=== PATIENT | male | born 1980 | race American Indian/Alaskan Native ===

== ENCOUNTER 2025-04-26 15:23 | Outpatient (AMB) | payer OTHER, SELFPAY ==
--- NOTE | 2025-04-26 15:27 | A.OFFPC_ITS ---
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 Accompanied by: Self / Same As Patient Allergies No Known Allergies (No Known Allergies*) Allergy (Unverified 04/26/25 15:27) Medication List - Last Reconciled 04/26/25 by TOAN Brand No Known Home Meds Tobacco use date assessed: 04/26/25 Dental Screening Dental Screen Date: 04/26/25 Did you have a dental visit in the last 12 months?: Yes Did you have a dental problem in the last 6 months where you did not have access to dental care?: No Was dental information given to patient?: Patient has dentist HPI HPI Comments History of Present Illness Details 44 year old male without any significant medical history presenting to the [facility] today to establish care and for annual physical exam. He has not been seen by any PCP in his adult life. He reports he tries to follow a healthy diet overall and Does eat a lot of protein, not many vegetables. Eats smaller portions starch as well. East a lot of bread and candy. Limits fast food. Drinks primarily water. Was previously very active, not much exercise now. Lives with girlfriend and 18 year old son and daughter. Had another son who at age 19 over substances. Feels he is coping well now, does have good social supports. Drinks about twice per week or every other week, total 4 per week. Smoking 1/2-3/4 ppd since age 14. Has been trying to cut back. No illicit drug use. Smokes marijuana. Chronic neck and low back pain- manageable Obesity-BMI 31.7. Concerns: L shoulder pain- intermittent. Feels a discomfort. No radiation. Health Maintenance: Due for colonoscopy ROS: General: No fevers, malaise, unintentional weight loss HEENT: No blurred vision, diplopia. No sore throat, nasal congestion, rhinorrhea, sinus pain, ear pain. No hearing loss Neck - no adenopathy Cardiovascular: No chest pain, palpitations, or leg edema Respiratory: No shortness of breath, wheezing, cough GI: No dysphagia, odynophagia, globus sensation. No abdominal pain, nausea, vomiting, diarrhea, constipation, melena, hematochezia : No dysuria, hematuria, increased urinary frequency, decreased urinary output. No testicular swelling or pain. No penile discharge MSK: No myalgia, back pain, arthralgias. see hpi Neuro: No headaches, weakness, paresthesias Psych: no depression/anxiery. No AH/VH. No SI/HI Skin: No rashes or lesions EXAM: Constitutional - Awake and Alert, No apparent distress Eyes - PERRLA, EOMI. Anicteric Ears - external ears normal, canals clear, TMs intact and pearly [place]un[place] with good cone of light Nose- septum midline, nares clear, no sinus tenderness Mouth/throat- mucosa moist, tongue and uvula midline, no erythema/edema or tonsillar adenopathy. Neck-trachea midline, thyroid symmetric without palpable nodules, no adenopathy Cardiovascular - S1S2, RRR, No edema Respiratory - Normal lung expansion, Normal respiratory effort, No respiratory distress, CTA bilaterally Gastrointestinal - NT / ND; +BS; No rebound or guarding - No CVA tenderness Extremities - no calf tenderness bilaterally, no swelling Musculoskeletal - Normal inspection, normal ROM Skin - Warm/Dry, no concerning lesions Neurological - Alert & oriented x3, CN II-XII in tact, 5/5 strength BUE and BLE, 2+ patellar reflexes, sensation intact Psychological - Appropriate affect [facility] Medical History No pertinent past medical history Surgical History No pertinent past surgical history Family History Father Diabetes Father Diabetes Social History Housing: Apartment Patient Tobacco Use Status: Current everyday Tobacco user e-Cigarette/Vaping Use: Never Used service: No Current occupational status: unemployed Cognitive needs: No Hearing needs: No Vision needs: Yes (Glasses and Contacts ) Questionnaire PHQ-9 Over the last 2 weeks, how often have you been bothered by any of the following problems? 1. Little interest or pleasure in doing things: not at all 2. Feeling down, depressed, or hopeless: not at all 3. Trouble falling or staying asleep, or sleeping too much: not at all 4. Feeling tired or having little energy: not at all 5. Poor appetite or overeating: not at all 6. Feeling bad about yourself - or that you are a failure or have let yourself or your family down: not at all 7. Trouble concentrating on things, such as reading the newspaper or watching television: not at all 8. Moving or speaking so slowly that other people could have noticed. Or the opposite - being so fidgety or restless that you have been moving around a lot more than usual: not at all 9. Thoughts that you would be better off or of hurting yourself in some way: not at all Total score: 0 Depression Screening Interpretation: Negative Depression Screening Done: Yes 39111 - PHQ-9 Billing: Yes Source: Developed by Drs. Rishabh Rondon, Marce Zapien, Doyle Cox and colleagues, with an educational jem from [employer]. Thrive Questionnaire I am a: Patient What is your living situation today?: I have a steady place to live Within the past 12 months, did the food you bought not last and you didn't have the money to get more?: Never true Within the past 12 months, did you worry whether your food would run out before you got money to buy more?: Never true Do you have trouble paying for medicines?: No Do you have trouble getting transportation to medical appointments?: No Do you have trouble paying your heating and electricity bill?: No Do you have trouble taking care of your child, family member or friend?: No Do you have trouble with day-to-day activities such as bathing, preparing meals, shopping, managing finances, etc.?: No Are you currently unemployed and looking for a job?: No Are you interested in more education?: No Please select the resources that you would like help with: None Currently or been in a relationship where the following occur: No concerns reported THRIVE Score: 0 MARCK-7 AMB Questionnaire MARCK-7 Feeling nervous, anxious, or on edge: 0 = Not at all Not being able to stop or control worryin = Not at all Worrying too much about different things: 0 = Not at all Trouble relaxin = Not at all Being so restless that it is hard to sit still: 0 = Not at all Becoming easily annoyed or irritable: 0 = Not at all Feeling afraid as if something awful might happen: 0 = Not at all Total MARCK-7 score (0-4 normal; 5-9 mild; 10-14 moderate; 15-21 severe): 0 Source: Developed by Drs. Rishabh Rondon, Marce Zapien, Doyle Cox and colleagues, with an educational jem from [employer]. MARCK-7 Assessment Billing MARCK-7 Assessment Tool: MARCK-7 Assessment 05240 Physical exam (Primary Care) Vital Signs: Last Vital Signs Temp 97.3 F 04/26/25 15:32 Pulse 69 04/26/25 15:32 BP 140/70 H 04/26/25 15:32 Pulse Ox 98 04/26/25 15:32 Oxygen Delivery Method Room Air 04/26/25 15:32 BMI result Body Mass Index 31.7 Tobacco/Smoking Status: Tobacco use Status Tobacco use date assessed 04/26/25 04/26/25 15:34 Patient Tobacco Use Status Current everyday Tobacco 04/26/25 15:34 e-Cigarette/Vaping Use Never Used 04/26/25 15:34 PHQ-9: PHQ-9 Score PHQ-9: Total score 0 04/26/25 15:56 Depression Screening Interpretation: Negative Currently or been in a relationship where the following occur: No concerns reported Coding Level of Care Code New Pt Prev Care 40-64y(66596) Diagnoses Routine medical exam Z00.00 Additional Codes MARCK-7 Assessment Billing - MARCK-7 Assessment Tool: MARCK-7 Assessment 65854 ([id number]) PHQ-9 - 21108 - PHQ-9 Billing: Yes ([id number]) Assessment & Plan Assessment & Plan (1) Routine medical exam: Code(s): Z00.00 - Encounter for general adult medical examination without abnormal findings Category: Medical Plan: 44-year-old male without any significant past medical history presenting to [facility] and for annual physical exam. Plan as below Plan Exercises provided for shoulder pain. NSaids, rest, ice, topicals prn. Will contact office for ongoing pain Routine screening labs as ordered below Referred for cologuard Continue following for annual skin exams and use sun protection Annual eye exams Dental exams twice yearly Wear seat belt in car Recommend regular exercise and healthy diet Follow up in 1 year for annual Orders: Orders Hemoglobin A1c Today Z00.00 - Encounter for general adult medical examination without abnormal findings Lipid Panel Today Z00.00 - Encounter for general adult medical examination without abnormal findings Liver Panel Today Z00.00 - Encounter for general adult medical examination without abnormal findings Basic Metabolic Panel Today Z00.00 - Encounter for general adult medical examination without abnormal findings Complete Blood Count Auto Diff Today Z00.00 - Encounter for general adult medical examination without abnormal findings Referrals Cologuard Test Z12.11 - Encounter for screening for malignant neoplasm of colon, Z12.12 - Encounter for screening for malignant neoplasm of rectum
[2025-04-26 15:32] VITALS: BP 140/70; PULSE 69; TEMP 36.3; O2SAT 98; BMI 31.7
[2025-04-26 16:06] VITALS: BP 136/84
== END 2025-04-26 16:13 | disposition home or self-care (01) ==
LOC: HO.HMCHD 15:23
PROVIDERS: Visit Provider Physician Assistant
DX: Z00.00 Encounter for general adult medical examination without abnormal findings (principal)

== ENCOUNTER → 2025-04-26 15:23 | Outpatient (BNVA) | payer OTHER, SELFPAY | PROVIDERS: Visit Provider Physician Assistant | DX: Z00.00 Encounter for general adult medical examination without abnormal findings (principal) | CPT/HCPCS: 96127; 99386 ==